=== PATIENT | male | born 1980 ===

== ENCOUNTER 2017-11-02 21:27 | Emergency (ER) | payer MEDICAID ==
[2017-11-02 21:48] VITALS: BMI 32.7
--- NOTE | 2017-11-02 22:05 | ED PDOC ---
HPI: CCC, URI, Sore Throat Time Seen by Provider: 11/02/17 21:55 Chief Complaint (Nursing): ENT Problem History Per: Patient History/Exam Limitations: no limitations Onset/Duration Of Symptoms: Days Current Symptoms Are (Timing): Still Present Associated Symptoms: Fever, Chills, Sore Throat, Myalgias. denies: Cough, Sputum, Neck Pain, Sinus Drainage, Nasal Congestion, Nausea, Vomiting, Diarrhea Additional History Per: Patient, Family Additional Complaint(s): No PMHx presenting with fever x 1 day, also complaining of sore throat, pain with swallowing, bilateral ear pain, and back pain. Denies cough, urinary symptoms, nausea, vomiting, diarrhea. Mother gave one pill of amoxicillin. No sick contacts or recent travel. Past Medical History Reviewed: Historical Data, Nursing Documentation Vital Signs: Last Vital Signs Temp 103.1 F H 11/02/17 22:14 Pulse 118 H 11/02/17 21:49 Resp 18 11/02/17 21:49 BP 136/84 11/02/17 21:49 Pulse Ox 98 11/02/17 23:06 - Medical History PMH: No Chronic Diseases - Family History Family History: States: No Known Family Hx - Home Medications Home Medications: Ambulatory Orders Medication Instructions Recorded Ibuprofen [Motrin Tab] 600 mg PO Q6 #30 tab 11/02/17 Penicillin VK [Penicillin VK Tab] 500 mg PO TID 10 Days #30 tab 11/02/17 - Allergies Allergies/Adverse Reactions: Allergies Allergy/AdvReac Type Severity Reaction Status Date / Time No Known Allergies Allergy Verified 11/02/17 21:49 Review of Systems ROS Statement: Except As Marked, All Systems Reviewed And Found Negative Constitutional: Positive for: Fever, Chills ENT: Positive for: Throat Pain Musculoskeletal: Positive for: Back Pain Physical Exam - Reviewed Nursing Documentation Reviewed: Yes Vital Signs Reviewed: Yes - Physical Exam Appears: Positive for: Well, Non-toxic, No Acute Distress Head Exam: Positive for: ATRAUMATIC, NORMAL INSPECTION, NORMOCEPHALIC Skin: Positive for: Normal Color, Warm, DRY Eye Exam: Positive for: EOMI, Normal appearance, PERRL ENT: Positive for: Normal ENT Inspection, Pharynx Is (hyperemic, scant exudate) Neck: Positive for: Painless ROM, Supple. Negative for: Normal (Tender LAD anteriorly) Cardiovascular/Chest: Positive for: Regular Rate, Rhythm Respiratory: Positive for: CNT, Normal Breath Sounds Gastrointestinal/Abdominal: Positive for: Normal Exam, Soft. Negative for: Tenderness Back: Positive for: Normal Inspection. Negative for: L CVA Tenderness, R CVA Tenderness, Vertebral Tenderness Extremity: Positive for: Normal ROM Neurologic/Psych: Positive for: Alert, envelope fold operator II-XII, Oriented, Gait (normal). Negative for: Motor/Sensory Deficits - ECG O2 Sat by Pulse Oximetry: 98 Pulse Ox Interpretation: Normal Medical Decision Making Medical Decision MakinPM A/P: No PMhx presenting with fever and sore throat -patient well appearing, currently febrile and tachycardic -possibly URI v. strep v. UTI/pyelo -will get [place] strep, give toradol/tylenol, check urine, and re-eval 11PM -Temp reduced to 101, HR mildly elevated at 108 -Patient re-evaluated and feeling much better, smiling, happy, states he feels well -Strep A +, will treat with Pen VK -Advised patient to followup with PMD Dr. Clyde Barr ([place]) Disposition - Clinical Impression Clinical Impression: Streptococcal sore throat - Disposition Referrals: Doris Cisneros MD [Medical Doctor] - Disposition: Routine/Home Disposition Time: 23:09 Condition: IMPROVED Prescriptions: Ibuprofen [Motrin Tab] 600 mg PO Q6 #30 tab Penicillin VK [Penicillin VK Tab] 500 mg PO TID 10 Days #30 tab Instructions: Strep Throat (DC) Forms: [facility] (French) Print Language: LITHUANIAN
[2017-11-02 22:29] LABS: URINE BILIRUBIN NEGATIVE (NEGATIVE); URINE BLOOD NEGATIVE (NEGATIVE); URINE CLARITY CLEAR (Clear); URINE COLOR YELLOW (YELLOW); URINE GLUCOSE (UA) NEG (Normal); URINE LEUKOCYTE ESTERASE NEG Leu/uL (Negative); URINE PROTEIN NEGATIVE (NEGATIVE); URINE UROBILINOGEN 0.2-1.0 mg/dL (0.2-1.0)
[2017-11-02 23:15] VITALS: RESP 17; TEMP 101.9
[2017-11-02 23:51] VITALS: BP 127/81; PULSE 99; O2SAT 99
== END 2017-11-02 23:25 | disposition home or self-care (01) ==
LOC: H.ER 21:27
DX: J02.0 Streptococcal pharyngitis (principal)
CPT/HCPCS: 81003; 87430; 87804; 96372; 99284; J1885